=== PATIENT | male | born 1945 | race Caucasian/White ===

== ENCOUNTER → 2018-01-20 | Outpatient (CLI) | payer OTHER, MEDICARE | LOC: BMCIMAGING 15:06 | PROVIDERS: ATTEND Orthopaedic Surgery | DX: M17.12 Unilateral primary osteoarthritis, left knee (principal) ==

== ENCOUNTER → 2018-03-10 | Outpatient (CLI) | payer OTHER, MEDICARE | LOC: BHFA 14:00 | PROVIDERS: ATTEND Internal Medicine Cardiovascular Disease | DX: I25.10 Atherosclerotic heart disease of native coronary artery without angina pectoris (principal) | CPT/HCPCS: 78452; 93017; A9500; J2785 ==

== ENCOUNTER → 2018-03-25 | Outpatient (CLI) | payer OTHER, MEDICARE | LOC: FIMAGING 15:30 | PROVIDERS: ATTEND Orthopaedic Surgery | DX: Z01.818 Encounter for other preprocedural examination (principal); M17.12 Unilateral primary osteoarthritis, left knee ==

== ENCOUNTER 2018-04-13 09:00 | Observation (INO) | payer OTHER, MEDICARE ==
--- NOTE | 2018-04-13 06:32 | PDIAF ---
- Diagnosis Diagnosis: left knee djd Code Status: Full Code - Medication Management Discharge Medications: electronically signed and located in the Home Medication List. - Orders Services needed: Home Care, Physical Therapy Home Care Face to Face: I certify that this patient was under my care and that I had the required dnlr-jd-dlit encounter meeting the encounter requirements on the discharge day. My findings support the fact that the patient is homebound as defined in Home Care Face to Face Continued: CMS Chapter 7 Medicare Benefits Manual 30.1.1 , The condition of the patient is such that there exists a normal inability to leave home and consequently, leaving home would require a considerable and taxing effort. Diet Recommendation: no restrictions on diet Diet Texture: Regular Texture Diet Additional Instructions: TOTAL JOINT ARTHROPLASTY DISCHARGE INSTRUCTIONS 1. Your surgeon follows the [facility] protocol for reducing your risk of DVT (blood clots) following surgery. Medication will be ordered to prevent blood clots. A sudden increase in calf pain and/or swelling could indicate a blood clot in your leg. If this occurs, please call your surgeon or his/her foundation assistant. An ultrasound of the leg may be necessary to diagnose a blood clot. If you have conditions that make you a higher risk for blood clots, your surgeon may use more aggressive ways to prevent them. Notify your surgeon if you think you are a high risk for blood clots. 2. Wear your white surgical stockings (MARISELA hose) for 2 weeks. This decreases your swelling and may help prevent blood clots. It is ok to remove MARISELA hose at night time to give your legs a break. 3. Swelling and bruising in the surgical leg is common. If you feel that it is excessive, please notify your surgeon. 4. Elevate your surgical leg with the ankle above the hip several times every day. Please keep the leg straight when you elevate by putting pillows under your foot. Do not put pillows under your knee. This will make being able to fully straighten more difficult. This is uncomfortable, but try to do it as much as possible. 5. For total knee replacements use compressive wrap on your knee for 3-5 days after surgery, then you can discontinue it. 6. Use a walker or crutches for 1-2 weeks. Progress your weight-bearing as tolerated. You may start to use a cane when you feel stable and safe. 7. You will receive physical therapy instructions in the hospital. Continue those exercises at home. There are additional exercises in the total joint booklet you were given before surgery. Outpatient physical therapy will begin 7- 10 days after surgery. Please schedule this in advance. 8. Use ice on your knee at least 3-5 times every day for 30 minutes. This helps reduce pain and swelling. Also use it at night before falling asleep. 9. Leave your surgical dressing in place for 2 weeks. Your dressing is water resistant, but not waterproof. Cover it with Saran Wrap or Empps-q-Abfa before showering. You may shower as soon as you feel safe entering a shower. If you notice bleeding from your incision 2 or 3 days after surgery, please notify your surgeon. 10. Due to narcotics, decreased activity and altered diet, most patients experience constipation after surgery. Use ftgt-kqt-apwjaas stool softeners while you are on narcotics. 11. You may drive a car when you are comfortable bearing weight, have good muscular control of your leg and are off narcotics. This usually occurs 2-4 weeks after surgery, depending on which leg was operated on. 12. If there are questions not addressed here, please refer the [facility] book given for more information. If you still have questions, please contact your surgeon s office. 13. If you have a life-threatening emergency, please call 911 and go to the emergency room immediately. For non-life threatening emergencies, please call your physicians office for advice before going to the emergency room. - Follow Up Care Current Providers and Referrals: Brady Bonilla MD [Primary Care Provider] - Wade Rain MD [Medical Doctor] -
--- NOTE | 2018-04-13 06:32 | PDHPUP ---
History & Physical Update H&P update statement: This history and physical update is based on an assessment of the patient which was completed after admission or registration (within 24 hours), but prior to the surgery/procedure. H&P update: no change in patient's condition since H&P completed
[~2018-04-13 09:00] MED LIST: ROPIVACAINE 0.2% 80 MG, EPINEPHrine 0.2 MG, KETOROLAC TROMETHAMINE 30 MG, morphINE 10 M... IU ONE; TRANEXAMIC ACID 1,000 MG in NS 100 ML IV ONE
[2018-04-13] MEDS ORDERED: THROMBIN (BOVINE) 5,000 UNIT VIAL TP ONE (09:25)
[2018-04-13] MEDS ORDERED: CALCIUM CHLORIDE 1 GM/10 ML INJ ONE (09:26)
[2018-04-13] MEDS ORDERED: ceFAZolin 2 GM/DEXTROSE 100 ML IV ONE (09:53)
[2018-04-13] MEDS ORDERED: ACETAMINOPHEN 325 MG TAB PO ONE (09:53)
[2018-04-13] MEDS ORDERED: FAMOTIDINE 20 MG TAB PO ONE (09:53)
[2018-04-13] MEDS ORDERED: LR 1,000 ML IV ONE (09:54)
[2018-04-13] MEDS ORDERED: MIDAZOLAM 2 MG/2 ML VIAL IVP ONE (10:45)
--- NOTE | 2018-04-13 10:45 | PDANEPAE ---
ANE History of Present Illness L TKA ANE Past Medical History - Cardiovascular History Hx Hypertension: Yes Hx Arrhythmias: No Hx Chest Pain: No Hx Coronary Artery / Peripheral Vascular Disease: Yes Hx CHF / Valvular Disease: No Hx Palpitations: No Cardiovascular History Comment: RBB - Pulmonary History Hx COPD: No Hx Asthma/Reactive Airway Disease: No Hx Recent Upper Respiratory Infection: No Hx Oxygen in Use at Home: No Hx Sleep Apnea: No Sleep Apnea Screening Result - Last Documented: Positive - Neurologic History Hx Cerebrovascular Accident: No Hx Seizures: No Hx Dementia: No - Endocrine History Hx Diabetes: No - Renal History Hx Renal Disorders: No - Liver History Hx Hepatic Disorders: No - Neurological & Psychiatric Hx Hx Neurological and Psychiatric Disorders: No - Cancer History Hx Cancer: No - Congenital Disorder History Hx Congenital Disorders: No - GI History Hx Gastrointestinal Disorders: Yes Gastrointestinal History Comment: DIVERTICULOSIS - Other Health History Other Health History: OSTEOARTHRITIS - Chronic Pain History Chronic Pain: Yes (LT KNEE) - Surgical History Prior Surgeries: ELINA CATARACT. ELINA ING HERNIA. UPPER BLEP ANE Review of Systems Review of systems is: negative Review of Systems: - Exercise capacity METS (RN): 5 METS ANE Patient History - Allergies Allergies/Adverse Reactions: GRASS,POLLEN Allergy (Uncoded 10/12/10 16:05) - Home Medications Home medications: home medication list seen and reviewed Home Medications: Ascorbic Acid [Vitamin C 500 mg (*)] 500 mg PO MWF 04/02/18 [Last Taken 04/08/18 ] Aspirin [Aspirin 81mg (*)] 81 mg PO HS 04/02/18 [Last Taken 04/12/18] Atorvastatin Calcium [Lipitor 40 mg (*)] 80 mg PO HS 04/02/18 [Last Taken ] Cholecalciferol Vit D3 [Vitamin D3 2000 units tab (OTC)] 2,000 units PO DAILY [Last Taken 04/08/18] Fexofenadine HCl [Jessica Allergy] 180 mg PO DAILY PRN 04/02/18 [Last Taken ] Ibuprofen [Motrin (*)] 200 mg PO TID PRN 04/02/18 [Last Taken 04/06/18] Lisinopril/Hctz 10/12.5 mg [Zestoretic/Prinzide 10/12.5MG (*)] 1 ea PO DAILY 10/13 [Last Taken 04/12/18] Multivitamins [Multivitamin (*)] 1 each PO DAILY 04/02/18 [Last Taken 04/08/18] [place]-3 Fatty Acids [Fish Oil 1000 mg (*)] 1,000 mg PO HS 04/02/18 [Last Taken 04/08/18] - NPO status NPO Since - Liquids (Date): 04/13/18 NPO Since - Liquids (Time): 08:00 NPO Since - Solids (Date): 04/12/18 - Anes Hx Anes Hx: post operative nausea, post operative nausea and vomiting - Smoking Hx Smoking Status: Former smoker - Family Anes Hx Family Anes Hx: none ANE Labs/Vital Signs - Vital Signs Vital Signs: reviewed preoperatively; see RN documention for details Height: 176.53 cm Weight: 97.522 kg ANE Physical Exam - Airway Neck exam: FROM Mallampati Score: Class 3 Mouth exam: normal dental/mouth exam - Pulmonary Pulmonary: no respiratory distress - Cardiovascular Cardiovascular: regular rate and rhythym - ASA Status ASA Status: III ANE Anesthesia Plan Anesthesia Plan: GA w LMA Regional Anesthesia: adductor canal FNB, POPC/PSR
[2018-04-13] MEDS ORDERED: ceFAZolin 1 GM/5 ML SYR ONE (11:05)
[2018-04-13] MEDS ORDERED: ROPIVACAINE HCL 150 MG/30 ML INJ ONE (12:09)
[2018-04-13] MEDS ORDERED: DEXAMETHASONE 4 MG/ML VIAL ONE (12:12)
[2018-04-13] MEDS ORDERED: ONDANSETRON 4 MG/2 ML VIAL ONE ×2 (12:12→14:34)
[2018-04-13] MEDS ORDERED: LIDOCAINE 2% 100 MG/5 ML SYR ONE (12:12)
[2018-04-13] MEDS ORDERED: fentaNYL 100 MCG/2 ML INJ ONE (12:12)
[2018-04-13] MEDS ORDERED: PROPOFOL 200 MG/20 ML VIAL ONE ×2 (12:23→12:37)
[2018-04-13] MEDS ORDERED: HYDROmorphONE/DILAUDID 2 MG/ML INJ ONE (12:37)
[2018-04-13] MEDS ORDERED: ACETAMINOPHEN 500 MG TAB PO PRN (13:25)
[2018-04-13] MEDS ORDERED: HYDROCODONE/APAP 5/325 TAB PO PRN (13:25)
[2018-04-13] MEDS ORDERED: NALOXONE HCL 0.4 MG/ML INJ IVP PRN (13:25)
[2018-04-13] MEDS ORDERED: fentaNYL 100 MCG/2 ML INJ IVP PRN (13:25)
[2018-04-13] MEDS ORDERED: ONDANSETRON 4 MG/2 ML VIAL IVP PRN ×2 (13:25→13:59)
[2018-04-13] MEDS ORDERED: DEXAMETHASONE 4 MG/ML VIAL IVP PRN (13:25)
[2018-04-13] MEDS ORDERED: HYDROmorphONE/DILAUDID 2 MG/ML INJ IVP PRN (13:25)
[2018-04-13] MEDS ORDERED: MEPERIDINE 25 MG/0.5 ML AMP IVP PRN (13:25)
[2018-04-13] MEDS ORDERED: oxyCODONE IR 5 MG TAB PO PRN (13:25)
--- NOTE | 2018-04-13 13:27 | POSTANESTH ---
Post Anesthetic Evaluation Cardiovascular Status: Similar to Pre-Op Cond Respiratory Status: Normal, Stable, Similar to Pre-op Cond. Level of Consciousness/Mental Status: Can Participate in Eval, Moderately Sleepy Pain Control: Adequate, Prn Tx Ordered Nausea/Vomiting Control: Inadeq, Add Tx Reqired Complications Possibly Related to Anesthesia: None Noted
[2018-04-13] MEDS ORDERED: TEMAZEPAM 15 MG CAP PO PRN (13:59)
[2018-04-13] MEDS ORDERED: DIPHENOXYLATE/ATROPINE LOMOTIL 1 TAB PO PRN (13:59)
[2018-04-13] MEDS ORDERED: LACTULOSE 20 GM/30 ML UDCUP PO PRN (13:59)
[2018-04-13] MEDS ORDERED: ONDANSETRON DISINTEGRATING 4 MG TAB PO PRN (13:59)
[2018-04-13] MEDS ORDERED: BISACODYL 10 MG SUPP PR PRN (13:59)
[2018-04-13] MEDS ORDERED: POLYETHYLENE GLYCOL 3350 17 GM PKT PO PRN (13:59)
[2018-04-13] MEDS ORDERED: MAGNESIUM HYDROXIDE 30 ML UDCUP PO PRN (13:59)
[2018-04-13] MEDS ORDERED: PROMETHAZINE HCL 25 MG/ML INJ IVP PRN (13:59)
[2018-04-13] MEDS ORDERED: diphenhydrAMINE 25 MG CAP PO PRN (13:59)
[2018-04-13] MEDS ORDERED: PROMETHAZINE HCL 25 MG SUPPR PR PRN (13:59)
[2018-04-13] MEDS ORDERED: METOCLOPRAMIDE 10 MG/2 ML VIAL IVP PRN (13:59)
[2018-04-13] MEDS ORDERED: LR 1,000 ML IV SCH (14:00)
[2018-04-13] MEDS ORDERED: CETIRIZINE 10 MG TAB PO PRN (14:01)
--- NOTE | 2018-04-13 14:03 | POSTOPPROG ---
Post Op Note Date of Operation: 04/13/18 Surgeon: Wade Rain Bricklayer Paving Brick: reyna Anesthesiologist: rusty Anesthesia: Spinal Pre-op Diagnosis: left knee djd Post-op Diagnosis: andrew Indication: same Procedure: left tka Inf/Abcess present in the surg proc area at time of surgery?: No Depth: Deep Incisional (Fascial) EBL: 100-500
[2018-04-13] MEDS: PROMETHAZINE HCL 25 MG/ML INJ IVP PRN ×2 (14:43→15:00)
[2018-04-13] MEDS ORDERED: PROMETHAZINE HCL 25 MG/ML INJ ONE (14:43)
[2018-04-13] MEDS ORDERED: METOCLOPRAMIDE 10 MG/2 ML VIAL IVP ONE (15:17)
[2018-04-13] MEDS ORDERED: METOCLOPRAMIDE 10 MG/2 ML VIAL ONE (15:20)
[2018-04-13] MEDS: TRANEXAMIC ACID 650 MG TAB PO SCH ×2 (15:51→23:03)
[2018-04-13] MEDS: ACETAMINOPHEN 325 MG TAB PO SCH ×2 (18:24→23:03)
[2018-04-13] MEDS: CYCLOBENZAPRINE 10 MG TAB PO PRN (18:29)
[2018-04-13] MEDS: oxyCODONE IR 5 MG TAB PO PRN ×2 (18:29→20:16)
[2018-04-13] MEDS: ASPIRIN 325 MG TAB PO SCH (20:16)
[2018-04-13] MEDS: SENNOSIDES/DOCUSATE SODIUM TAB PO SCH (20:16)
[2018-04-13] MEDS: FAMOTIDINE 20 MG TAB PO SCH (20:16)
[2018-04-13] MEDS: ceFAZolin 2 GM/DEXTROSE 100 ML IV SCH (20:16)
[2018-04-13] MEDS ORDERED: ATORVASTATIN CALCIUM 40 MG TAB PO SCH (21:00)
[2018-04-14] MEDS: ceFAZolin 2 GM/DEXTROSE 100 ML IV SCH (04:44)
[2018-04-14] MEDS: oxyCODONE IR 5 MG TAB PO PRN ×4 (04:44→13:56)
[2018-04-14] MEDS: TRANEXAMIC ACID 650 MG TAB PO SCH (05:34)
[2018-04-14] MEDS: ACETAMINOPHEN 325 MG TAB PO SCH ×2 (05:35→11:59)
--- NOTE | 2018-04-14 07:11 | PDIAF ---
- Diagnosis Diagnosis: left knee djd Code Status: Full Code - Medication Management Discharge Medications: electronically signed and located in the Home Medication List. - Orders Services needed: Home Care, Physical Therapy Home Care Face to Face: I certify that this patient was under my care and that I had the required vdbq-eq-hioq encounter meeting the encounter requirements on the discharge day. My findings support the fact that the patient is homebound as defined in Home Care Face to Face Continued: CMS Chapter 7 Medicare Benefits Manual 30.1.1 , The condition of the patient is such that there exists a normal inability to leave home and consequently, leaving home would require a considerable and taxing effort. Diet Recommendation: no restrictions on diet Diet Texture: Regular Texture Diet Additional Instructions: 50% wb TOTAL JOINT ARTHROPLASTY DISCHARGE INSTRUCTIONS 1. Your surgeon follows the [facility] protocol for reducing your risk of DVT (blood clots) following surgery. Medication will be ordered to prevent blood clots. A sudden increase in calf pain and/or swelling could indicate a blood clot in your leg. If this occurs, please call your surgeon or his/her administrative support assistant. An ultrasound of the leg may be necessary to diagnose a blood clot. If you have conditions that make you a higher risk for blood clots, your surgeon may use more aggressive ways to prevent them. Notify your surgeon if you think you are a high risk for blood clots. 2. Wear your white surgical stockings (MARISELA hose) for 2 weeks. This decreases your swelling and may help prevent blood clots. It is ok to remove MARISELA hose at night time to give your legs a break. 3. Swelling and bruising in the surgical leg is common. If you feel that it is excessive, please notify your surgeon. 4. Elevate your surgical leg with the ankle above the hip several times every day. Please keep the leg straight when you elevate by putting pillows under your foot. Do not put pillows under your knee. This will make being able to fully straighten more difficult. This is uncomfortable, but try to do it as much as possible. 5. For total knee replacements use compressive wrap on your knee for 3-5 days after surgery, then you can discontinue it. 6. Use a walker or crutches for 1-2 weeks. Progress your weight-bearing as tolerated. You may start to use a cane when you feel stable and safe. 7. You will receive physical therapy instructions in the hospital. Continue those exercises at home. There are additional exercises in the total joint booklet you were given before surgery. Outpatient physical therapy will begin 7- 10 days after surgery. Please schedule this in advance. 8. Use ice on your knee at least 3-5 times every day for 30 minutes. This helps reduce pain and swelling. Also use it at night before falling asleep. 9. Leave your surgical dressing in place for 2 weeks. Your dressing is water resistant, but not waterproof. Cover it with Saran Wrap or Shvoz-e-Jeum before showering. You may shower as soon as you feel safe entering a shower. If you notice bleeding from your incision 2 or 3 days after surgery, please notify your surgeon. 10. Due to narcotics, decreased activity and altered diet, most patients experience constipation after surgery. Use mzbk-esv-dvvkzfb stool softeners while you are on narcotics. 11. You may drive a car when you are comfortable bearing weight, have good muscular control of your leg and are off narcotics. This usually occurs 2-4 weeks after surgery, depending on which leg was operated on. 12. If there are questions not addressed here, please refer the [facility] book given for more information. If you still have questions, please contact your surgeon s office. 13. If you have a life-threatening emergency, please call 911 and go to the emergency room immediately. For non-life threatening emergencies, please call your physicians office for advice before going to the emergency room. - Follow Up Care Current Providers and Referrals: Brady Bonilla MD [Primary Care Provider] - Wade Rain MD [Medical Doctor] -
--- NOTE | 2018-04-14 07:13 | SOAPPROG ---
SOAP Progress Note Assessment/Plan: Assessment: s/p tka Plan:50% wb as nondisplaced metaphyseal fx identified on post op xrays rom as beltran d/c home when cleared by pt f/u at two weeks 04/14/18 07:11 Subjective: min pain no cp or sob Objective: Vital Signs Temp Pulse Resp BP Pulse Ox 36.9 C 85 16 118/69 94 04/14/18 04:00 04/14/18 04:00 04/14/18 04:00 04/14/18 04:00 04/14/18 04:00 Laboratory Results 04/14/18 04:25 04/13/18 04/14/18 04/15/18 05:59 05:59 05:59 Intake Total 4345 Output Total 1225 300 Balance 3120 -300 dressing intact intact pf,df,ehl toes warm and pink neg homans farhan xrays metaphyseal nondisplaced fx otherwise stable ICD10 Worksheet Patient Problems: Problems Problem Status Onset Arthritis of knee Acute - ICD10 Problem Qualifiers (1) Arthritis of knee
[2018-04-14] MEDS: ASPIRIN 325 MG TAB PO SCH (07:44)
[2018-04-14] MEDS: SENNOSIDES/DOCUSATE SODIUM TAB PO SCH (07:45)
[2018-04-14] MEDS: FAMOTIDINE 20 MG TAB PO SCH (07:46)
[2018-04-14] MEDS ORDERED: LISINOPRIL/HCTZ 10/12.5 MG 1 EA TAB PO SCH (09:00)
--- NOTE | 2018-04-14 09:19 | ASDISCHSUM ---
Discharge Information Plan Status:Home with Home Health Medically Cleared to Leave:04/13/2018 Discharge Date:04/13/2018 CM D/C Disposition:Home Health Service ADT D/C Disposition:Home Health Service Projected Discharge Date:04/14/2018 12:00 AM Transportation at D/C:Family Discharge Delay Reason: Follow-Up Date:04/14/2018 12:00 AM Discharge Slot:1 - 8:01 am - 12:00 noon Final Diagnosis: Placement Information Referral Type:*Home Health Care Services Referral ID:[id number] Provider Name:[facility] Address 1[address] Address 2: City:[place] Selection Factors: State:[place] Patient Contact Information Contact Name:ALDEN Relationship: Address:[address] City:[place] Alternate Phone: State/Zip Code:[place] [address] Email: Financial Information Financial Class:Medicare Primary Plan Desc:MEDICARE INPATIENT Primary Plan Number:[id number] Secondary Plan Desc:MING/MDR SUPPLEMENT Secondary Plan Number:[id number] Assessment Information LACE LACE Length of stay for Answers: 2 days current admission Acuity / Level of Answers: No Care: Did the patient have an inpatient admission? Comorbidities - select Answers: Coronary Artery Disease all that apply Opioid dependence / Chronic pain Other Notes: HTN; Diverticulosis # of Emergency department Answers: 0 visits in the last 6 months Score: 9 Date Signed: 04/14/2018 09:18 AM Electronically Signed By:EDDI Kim Case Management Discharge Plan Note Case Management Discharge Discharge Order Complete? Answers: Yes Patient to Obtain Answers: via Family Medications Transportation Arranged Answers: Family/Friends Faxed Final Orders Answers: Yes Agency/Facility Transfer Answers: Yes Report Printed & Faxed to Receiving Agency Family Notified Answers: Yes Discharge Comments Notes: CM discussed discharge plan with family. Pt being discharged with [facility]. Family to transport. No other CM needs identified. Date Signed: 04/14/2018 09:17 AM Electronically Signed By:EDDI Kim Intervention Information
[2018-04-14] MEDS: CYCLOBENZAPRINE 10 MG TAB PO PRN (09:54)
[2018-04-14 11:59] VITALS: BP 120/66
--- NOTE | 2018-04-17 08:21 | GOP ---
DATE OF OPERATION: 04/13/2018 SURGEON: Wade Rain MD CREDENTIALING ASSISTANT: Tomasa Knight RN, surgical dental assistant who was a medical necessity for the entirety of the case. PREOPERATIVE DIAGNOSIS: Left knee degenerative joint disease. POSTOPERATIVE DIAGNOSIS: Left knee degenerative joint disease. PROCEDURE PERFORMED: Left total knee arthroplasty. FINDINGS: SPECIMENS: None. INDICATIONS: The patient is a 73-year-old gentleman with end-stage arthritis to his left knee. Clin ical and radiographic features are consistent with this. He has failed all attempts at conservative management. I, therefore, recommended operative intervention with total knee replacement. I have ou tlined the surgical procedure, risks, benefits, and alternatives. He wished to proceed. Written con sent was signed and placed in patient's chart. DESCRIPTION OF PROCEDURE: The patient was identified in the preanesthesia area. The left knee clear ly demarcated as the operative site with indelible marker. He was given 2 g of Ancef intravenously i n route to the operative suite. In the OR, a spinal anesthetic was placed. Attention was turned to the left lower extremity, which was sterilely prepped and draped in usual fashion. A tourniquet was applied to the upper thigh. The limb was then sterilely prepped and draped in usual fashion. Approp riate time-out procedure was carried out. The limb was exsanguinated with an Esmarch bandage to 275 mmHg. A medial parapatellar arthrotomy was created. Thick subcutaneous flaps were elevated. Mid coronal d issection was carried out in subperiosteal fashion and retractors were placed. There was tricompartm ental arthritis, decision was made to proceed with total knee replacement. Two pins were then placed from medial to lateral across the distal femur. The femoral referenced arr ay affixed. Femoral and tibial checkpoints were placed. The tibia array was placed over 2 percutane ously placed pins in the distal mid salazar. All bony landmarks were entered into the computer in stand geovani fashion. The marginal osteophytes were withdrawn. The soft tissues were balanced using the CRISTOBAL plasty software and soft tissue releases, and resections were made for a size 4 femur, size 5 tibia. Trial reduction was carried out with a 5 x 9 mm polyethylene spacer placed. This allowed full exten cass, flexion of 125 degrees without any instability to varus or valgus stress through the flexion-ex tension arc. The trial components were withdrawn. The tibial and femoral components were press-fit in a standard fashion. A 5 x 9 mm polyethylene spacer was placed, confirmed to be fully seated. Thi s allowed full extension of knee, flexion to 125 degrees without instability through the flexion-exte nsion arc. To varus and valgus stress. Attention was turned to the patella. This was everted cut in a freehand cutting technique. Drill ho les were made for a size 38 mm patella. A press-fit 38 mm patella was placed. The patella tracked c entrally through flexion-extension arc. The wound was copiously irrigated. The capsule and soft tis sues injected with a joint cocktail of ropivacaine, morphine, Toradol, and epinephrine. The medial p arapatellar arthrotomy closed using #1 Ethibond suture with the knee in 10 degrees of flexion. The k nee was instilled with platelet-rich plasma. Subcutaneous tissue 2-0 Monocryl, and the skin was stap led. Sterile dressing was applied. The patient was awakened, extubated, and taken to recovery room in good and stable condition. TOTAL TOURNIQUET TIME: 55 minutes. COMPLICATIONS: None. IMPLANTS: [place] [employer]lon posterior stabilized femoral component size 4 , size 5 tibia, 5 x 9 mm p olyethylene spacer, and a 38 mm patella. DISPOSITION: To the recovery room, then the floor. /[id number]/MODL
--- NOTE | 2018-04-17 10:48 | GDS ---
4TH GRADE MATH TEACHER: None. DIAGNOSIS: Left knee degenerative joint disease. DISCHARGE DIAGNOSIS: Left knee degenerative joint disease. PROCEDURE: Left total knee arthroplasty. OPERATIVE INDICATIONS: The patient is a 73-year-old gentleman who presents for elective total knee r eplacement. He has end-stage arthritis. consistent with this. He has failed all attempt s at conservative management. HOSPITAL COURSE: The patient was admitted to the hospital after total knee replacement. x-rays demonstrated a slight metaphyseal nondisplaced fracture, without cortical break. He was, ther efore, placed on 50% weightbearing. He quickly progressed with physical therapy. At the time of dis charge, he was tolerating an oral diet. Pain is well controlled on oral medicines. He is voiding wi thout difficulty. Dressing is clean, dry, and intact. X-rays are stable. DISCHARGE ACTIVITY: He is 50% weightbearing for the first 2 weeks. Range of motion as tolerated. D aily dressing changes if the dressing becomes saturated, otherwise remain in place with a Mepilex geovanna ssing. He may shower with the Mepilex. Seek attention for increasing redness, swelling, drainage, o r discharge. DISCHARGE MEDICATIONS: Oxycodone 5 mg 1-2 every 6 hours p.r.n. pain, aspirin 325 mg p.o. daily. FOLLOWUP: Follow up at 2 weeks. /[id number]/MODL
== END 2018-04-14 14:50 | disposition home health service (06) ==
LOC: INTOOBSV 09:41 → F3N 09:41
PROVIDERS: ADMIT Orthopaedic Surgery; ATTEND Orthopaedic Surgery
PROC: 0SRD0JA Replacement of Left Knee Joint with Synthetic Substitute, Uncemented, Open Approach (ICD-10-PCS; principal; 2018-04-13 11:15)
DX: M17.12 Unilateral primary osteoarthritis, left knee (principal); M96.672 Fracture of tibia or fibula following insertion of orthopedic implant, joint prosthesis, or bone plate, left leg; I25.10 Atherosclerotic heart disease of native coronary artery without angina pectoris; I71.2 Thoracic aortic aneurysm, without rupture; N52.9 Male erectile dysfunction, unspecified; E78.5 Hyperlipidemia, unspecified; I10 Essential (primary) hypertension; R73.01 Impaired fasting glucose; G47.33 Obstructive sleep apnea (adult) (pediatric); Z79.82 Long term (current) use of aspirin; Z87.891 Personal history of nicotine dependence
CPT/HCPCS: 27447; 73560; 97110; 97116; 97161; 97165; 97535; G8978; G8979; G8980; G8987; G8988; G8989; J0171; J0690; J1100; J1170; J1885; J2001; J2250; J2270; J2405; J2550; J2704; J2765; J2795; J3010

== ENCOUNTER → 2018-06-04 | Outpatient (CLI) | payer OTHER, MEDICARE | LOC: BMCIMAGING 08:35 | PROVIDERS: ATTEND Orthopaedic Surgery | DX: Z47.1 Aftercare following joint replacement surgery (principal); S82.192D Other fracture of upper end of left tibia, subsequent encounter for closed fracture with routine healing; Z96.652 Presence of left artificial knee joint ==

== ENCOUNTER → 2018-07-15 | Outpatient (CLI) | payer OTHER, MEDICARE | LOC: BMCIMAGING 14:14 | PROVIDERS: ATTEND Orthopaedic Surgery | DX: Z09 Encounter for follow-up examination after completed treatment for conditions other than malignant neoplasm (principal); Z96.652 Presence of left artificial knee joint ==

== ENCOUNTER → 2018-10-07 | Outpatient (CLI) | payer OTHER, MEDICARE | LOC: BMCIMAGING 14:31 ==